=== PATIENT | male | born 1995 | race African-American/Black ===

== ENCOUNTER 2023-01-12 18:26 | Emergency (ER) | payer OTHER, SELFPAY ==
[2023-01-12 18:43] VITALS: BP 115/83; PULSE 53; RESP 18; TEMP 36.6; O2SAT 100
--- NOTE | 2023-01-12 19:07 | ED.BACK ---
HPI - Back Pain/Injury General Chief Complaint: Back Pain/Injury Stated Complaint: back pain Time Seen by Provider: 01/12/23 18:52 Source: patient Mode of arrival: ambulatory Limitations: no limitations History of Present Illness HPI Narrative: This is a 27-year-old male who presents to the ED with chief complaint of back injury occurring at work today. Patient states that he was pulling a drill set up from the ground and had immediate pain in his mid back. States it is worse with bending, twisting and movement in general. Denies any trauma or other injury to the back. Denies any numbness, weakness, loss of bowel or bladder control, saddle anesthesia. Pain is limited to the mid back. Related Data Allergies Allergy/AdvReac Type Severity Reaction Status Date / Time cefixime Allergy Unknown HIVES Unverified 01/12/23 18:27 Review of Systems Review of Systems: CONSTITUTIONAL: Denies fever, chills, or sweats. EYES: Denies visual changes, redness, or discharge. ENT: Denies rhinorrhea, congestion, sore throat, or otalgia. CARDIOVASCULAR: Denies chest pain, palpitations, or edema. RESPIRATORY: Denies cough or dyspnea. GASTROINTESTINAL: Denies abdominal pain, nausea, vomiting, or diarrhea. GENITOURINARY: Denies dysuria or hematuria. SKIN: Denies rash or itching. MUSCULOSKELETAL: See HPI NEUROLOGIC: Denies headache, numbness, dizziness, or weakness. PSYCHIATRIC: Denies anxiety or depression. Exam Narrative: GENERAL: Well-appearing, well-nourished, and in no acute distress. HEAD: Normocephalic, atraumatic. EYES: PERRLA and EOMI. ENT: Nares clear, no rhinorrhea or epistaxis. Mucous membranes moist. Oropharynx without tonsillar hypertrophy exudate or other lesions. NECK: Supple. No adenopathy or masses. CHEST: No respiratory distress. Clear to auscultation. No wheezes rales or rhonchi HEART: Regular rate and rhythm. No murmur heard. Normal peripheral pulses. ABDOMEN: Soft, nontender, nondistended, normal active bowel sounds. MSK: Significant tightness to the erector spinae muscle groups throughout the thoracic and lumbar spine. No midline tenderness or deformity. He does have pain reproduced with twisting. MSK exam is otherwise benign. Ambulatory. Normal range of motion. No edema. SKIN: Warm, dry, no rash. NEURO: Alert and oriented x3. No focal deficits. No saddle anesthesia. PSYCH: Normal mood and affect. Course Vital Signs Vital signs: Vital Signs Temperature 97.9 F 01/12/23 18:43 Pulse Rate 53 L 01/12/23 18:43 Respiratory Rate 18 01/12/23 18:43 Blood Pressure 115/83 01/12/23 18:43 Pulse Oximetry 100 01/12/23 18:43 Oxygen Delivery Room Air 01/12/23 18:43 Temperature 97.9 F 01/12/23 18:43 Pulse Rate 53 L 01/12/23 18:43 Respiratory Rate 18 01/12/23 18:43 Blood Pressure 115/83 01/12/23 18:43 Pulse Oximetry 100 01/12/23 18:43 Oxygen Delivery Room Air 01/12/23 18:43 MDM - Back Pain/Injury MDM Narrative Medical decision making narrative: This is a 27-year-old male who presents to the ED with chief complaint of back injury at work. Pain is in the mid back. Vitals are stable. Exam shows paraspinal muscle tightness. Symptoms are consistent with a back spasm. He will be discharged home in stable condition. Given prescriptions for muscle relaxers. Toradol shot given here. Supportive measures for home discussed. Return precautions given. Patient is understanding and agreeable plan for discharge and follow-up with his PCP. Discharge Plan Discharge Clinical Impression: Low back strain Patient Disposition: Home, Self-Care Condition: Stable Instructions: Antibiotic Form, Acute Low Back Pain (ED) Additional Instructions: Your symptoms are consistent with a strain of your back muscles. Prescribing muscle relaxer to your pharmacy. You should also take tylenol and ibuprofen every 4-6 hours Return to the ER for any new concerning or worsening symptoms like fev
[2023-01-12] MEDS: KETOROLAC 30 MG/ML VIAL (*BKC) IM (20:15)
== END 2023-01-12 20:20 | disposition home or self-care (01) ==
PROVIDERS: Emergency Provider Physician Assistant; PCP Family Medicine Sports Medicine
DX: S39.012A Strain of muscle, fascia and tendon of lower back, initial encounter (principal); X50.0XXA Overexertion from strenuous movement or load, initial encounter
CPT/HCPCS: 96372; 99283; J1885

== ENCOUNTER 2023-06-05 18:39 | Emergency (ER) | payer OTHER, BC, SELFPAY ==
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
[2023-06-05 19:03] VITALS: BP 103/71; PULSE 53; RESP 16; O2SAT 100
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
== END 2023-06-05 20:49 | disposition home or self-care (01) ==
LOC: ANHED 20:36
PROVIDERS: Emergency Provider Emergency Medicine; PCP Family Medicine Sports Medicine
DX: S70.01XA Contusion of right hip, initial encounter (principal); V43.52XA Car driver injured in collision with other type car in traffic accident, initial encounter
CPT/HCPCS: 70450; 72125; 73502; 99284